=== PATIENT | female | born 2000 | race Caucasian/White ===

== ENCOUNTER 2022-03-01 12:08 | Emergency (ER) | payer OTHER ==
[2022-03-01 13:17] LABS: HEMOGLOBIN 13.2 gm/dl (12.3-15.3); RED BLOOD COUNT 4.14 M/UL (4.00-5.10); WHITE BLOOD COUNT 10.7 K/UL (4.5-11.0)
[2022-03-01 13:44] LABS: BUN/CREATININE RATIO 14 (0-10)
== END 2022-03-01 17:37 | disposition home or self-care (01) ==
LOC: ER1 12:08
PROVIDERS: Physician Assistant
DX: O99.513 Diseases of the respiratory system complicating pregnancy, third trimester (principal); R91.1 Solitary pulmonary nodule; O99.113 Other diseases of the blood and blood-forming organs and certain disorders involving the immune mechanism complicating pregnancy, third trimester; D69.6 Thrombocytopenia, unspecified; R59.0 Localized enlarged lymph nodes; Z3A.38 38 weeks gestation of pregnancy; Z88.1 Allergy status to other antibiotic agents
CPT/HCPCS: 80053; 82550; 82553; 83690; 84484; 85025; 93005; 99285; Q9967

== ENCOUNTER 2022-03-08 16:52 | Inpatient (IN) | payer OTHER ==
[~2022-03-08] VITALS: Ht 165.1 cm; Wt 97.5 kg
[2022-03-08 17:14] LABS: HEMOGLOBIN 12.8 gm/dl (12.3-15.3); RED BLOOD COUNT 3.99 M/UL (4.00-5.10); WHITE BLOOD COUNT 10.4 K/UL (4.5-11.0)
[2022-03-08] MEDS ORDERED: SERTRALINE HCL25 MG PO (21:26)
[2022-03-08] MEDS ORDERED: PRENATAL VITAM1 EAC6 PO (21:27)
[2022-03-09] MEDS ORDERED: DOCUSATE SODIU100 MG PO (16:48)
[2022-03-09] MEDS ORDERED: IBUPROFEN600 MG PO (16:48)
[2022-03-10 06:48] LABS: HEMOGLOBIN 10.9 gm/dl (12.3-15.3)
== END 2022-03-11 16:57 | disposition home or self-care (01) | DRG 807 ==
LOC: GENOP 16:52 → OB 17:03
PROVIDERS: ADMIT Obstetrics & Gynecology
PROC: 10E0XZZ Delivery of Products of Conception, External Approach (ICD-10-PCS; principal; 2022-03-09)
PROC: 0KQM0ZZ Repair Perineum Muscle, Open Approach (ICD-10-PCS; 2022-03-09)
PROC: 10907ZC Drainage of Amniotic Fluid, Therapeutic from Products of Conception, Via Natural or Artificial Opening (ICD-10-PCS; 2022-03-09)
PROC: 3E033VJ Introduction of Other Hormone into Peripheral Vein, Percutaneous Approach (ICD-10-PCS; 2022-03-09)
PROC: 4A1H7CZ Monitoring of Products of Conception, Cardiac Rate, Via Natural or Artificial Opening (ICD-10-PCS; 2022-03-09)
PROC: 10H073Z Insertion of Monitoring Electrode into Products of Conception, Via Natural or Artificial Opening (ICD-10-PCS; 2022-03-09)
PROC: 0UH97HZ Insertion of Contraceptive Device into Uterus, Via Natural or Artificial Opening (ICD-10-PCS; 2022-03-09)
DX: O99.12 Other diseases of the blood and blood-forming organs and certain disorders involving the immune mechanism complicating childbirth (principal); Z37.0 Single live birth; D69.6 Thrombocytopenia, unspecified; D89.89 Other specified disorders involving the immune mechanism, not elsewhere classified; Z20.822 Contact with and (suspected) exposure to COVID-19; O70.1 Second degree perineal laceration during delivery; O99.892 Other specified diseases and conditions complicating childbirth; Z3A.38 38 weeks gestation of pregnancy; Z80.3 Family history of malignant neoplasm of breast; Z82.49 Family history of ischemic heart disease and other diseases of the circulatory system; Z83.3 Family history of diabetes mellitus; Z80.0 Family history of malignant neoplasm of digestive organs
CPT/HCPCS: 81001; 82800; 85014; 85018; 85025; J2590; J7120